=== PATIENT | female | born 1985 | race Caucasian/White ===

== ENCOUNTER 2018-05-19 05:52 | Emergency (ER) | payer BC, OTHER ==
[~2018-05-19] VITALS: Ht 170.2 cm; Wt 115.2 kg
[~2018-05-19 05:52] MED LIST: B Complete1 EACH PO; DESV50 PO; Folic Acid0.8 MG PO; HYDACE5 PO; IBUP800 PO; LOSA25; MAGOXI400 PO; NAPR220; NAPR550 PO; ONDA8 PO; OXYACE5T PO; Verotin-Gr Cap1 EACH PO; Zofran Odt4 MG SL; [UNRECOGNIZED DRUG - OTHER]
[2018-05-19] MEDS ORDERED: DESVENLAFAXINE25 MG PO (06:29)
[2018-05-19 07:10] LABS: Source, Urine Clean Catch
[2018-05-19 07:16] LABS: Appearance, Urine Hazy (Clear); Bilirubin, Urine Neg (Neg); Blood, Urine 3+ (Neg); Color, Urine Yellow (P-Yellow); Glucose Qualitative, Urine Neg (Neg); Ketones, Urine Neg (Neg); Leukocyte Esterase, Urine 3+ (Neg); Nitrite, Urine Neg (Neg); Protein, Urine 1+ (Neg); Specific Gravity, Urine 1.025 (1.003-1.022); Urobilinogen, Urine NORM (Normal)
[2018-05-19 07:29] LABS: White Blood Cells, Urine 25-50 /hpf (0-5)
[2018-05-19 07:30] LABS: Bacteria Mod /hpf; Squamous Epithelial Cells Many /hpf (Few)
[2018-05-19 07:33] LABS: BASOPHILS ABSOLUTE AUTO 0.02 K/mm3 (0.00-0.23); BASOPHILS PERCENT AUTO 0 % (0-2); EOSINOPHILS ABSOLUTE AUTO 0.07 K/mm3 (0.00-0.68); EOSINOPHILS PERCENT AUTO 1 % (0-6); Hematocrit 41.2 % (33.0-51.0); Hemoglobin 13.4 g/dL (11.5-16.0); IMMATURE GRAN ABSOLUTE AUTO 0.03 K/mm3 (0.00-0.10); IMMATURE GRAN PERCENT AUTO 0 % (0-1); LYMPHOCYTES ABSOLUTE AUTO 1.95 K/mm3 (0.84-5.20); LYMPHOCYTES PERCENT AUTO 29 % (21-46); MONOCYTES ABSOLUTE AUTO 0.34 K/mm3 (0.16-1.47); MONOCYTES PERCENT AUTO 5 % (4-13); Mean Corpuscular HGB 27.5 pg (26.0-34.0); Mean Corpuscular HGB Conc 32.5 g/dL (31.5-36.5); Mean Corpuscular Volume 85 fL (80-100); NEUTROPHILS ABSOLUTE AUTO 4.33 K/mm3 (1.96-9.15); NEUTROPHILS PERCENT AUTO 64 % (41-73); Platelet Count 230 K/mm3 (150-400); Red Blood Cell Count 4.87 M/mm3 (3.80-5.20); White Blood Cell Count 6.74 K/mm3 (4.00-11.30)
[2018-05-19 07:51] LABS: Alanine Aminotransfer (ALT/SGP 16 U/L (12-78); Albumin/Globulin Ratio 1.1 (0.8-1.8); Alk Phos 67 U/L (50-136); Anion Gap 7 mmol/L (6-16); Aspartate Aminotrans (AST/SGOT 16 U/L (12-37); Bilirubin, Total 0.6 mg/dL (0.1-1.0); Blood Urea Nitrogen 13 mg/dL (8-24); CO2, Blood 23 mmol/L (21-32); Calcium, Blood 8.8 mg/dL (8.5-10.1); Chloride, Blood 109 mmol/L (98-108); Creatinine, Blood 0.68 mg/dL (0.40-1.00); Globulin, Blood 3.7 g/dL (2.2-4.0); Glomerular Filtration Rate >60 (60-); Glucose, Blood 91 mg/dL (70-99); Sodium, Blood 139 mmol/L (136-145); Total Protein, Blood 7.7 g/dL (6.4-8.2)
[2018-05-19 08:47] LABS: Source, Urine Catheter
[2018-05-19 08:53] LABS: Bilirubin, Urine Neg (Neg); Blood, Urine Neg (Neg); Glucose Qualitative, Urine Neg (Neg); Ketones, Urine Neg (Neg); Leukocyte Esterase, Urine Neg (Neg); Nitrite, Urine Neg (Neg); Protein, Urine Neg (Neg); Urobilinogen, Urine NORM (Normal)
[2018-05-19 08:54] LABS: Appearance, Urine Clear (Clear); Color, Urine Yellow (P-Yellow)
== END 2018-05-19 10:39 | disposition home or self-care (01) ==
LOC: ER 05:52
PROVIDERS: Emergency Medicine
DX: R10.31 Right lower quadrant pain (principal); Z90.49 Acquired absence of other specified parts of digestive tract
CPT/HCPCS: 74176; 80053; 81001; 81003; 81025; 83690; 85025; 96361; 96374; 96375; 99284-25; J1170; J2405; J7120; P9612

== ENCOUNTER 2018-06-28 09:41 | Day surgery (SDC) | payer BC, OTHER ==
[~2018-06-28] VITALS: Ht 170.2 cm; Wt 114.3 kg
[~2018-06-28 09:41] MED LIST changes: +CLARITIN PO; +DESVENLAFAXINE25 MG PO; +FISH OIL 1,2001 EAC1 PO; +FLUTICASONE; +JENCYCLA0.35 MG PO; +METF500 PO; +Pravachol40 MG PO
--- NOTE | 2018-06-28 10:40 | NUR ---
History, Chart, Medications and Allergies reviewed before start of procedure. Lungs clear T/O to Auscultation. Patient confirms NPO status and agrees with scheduled surgery. Patient reports completing Chlorhexadine shower X2 prior to admission to hospital.
--- NOTE | 2018-06-28 13:19 | NUR ---
06/28/18 1319 Isabell Clay ALL COUNTS CORRECT.
--- NOTE | 2018-06-28 13:44 | NUR ---
ARRIVED INTO PACU VSS ASKING QUESTIONS ABOUT CARE AND HOW SURGERY WENT. RECIEVED REPORT FROM ANESTHESIOLOGIST.
--- NOTE | 2018-06-28 13:55 | NUR ---
ASSUMED PT CARE FROM CAMERON GAMA RN AT 1352. PT GRIMACING AND TEARY EYED. AFEBRILE/VSS. WARM BLANKETS PLACED. WILL MEDICATE FOR PAIN LEVEL 10.
--- NOTE | 2018-06-28 15:57 | NUR ---
WHILE UP TO BATHROOM BECAME NAUSEATED AND DIZZY. BROUGHT BACK TO BED IN WHEEL CHAIR. AFTER LYING DOWN 5 MINUTES STATES NAUSEA AND PAIN GETTING LESS DIZZYNESS HAS PAST
--- NOTE | 2018-06-28 17:11 | NUR ---
UP FOR WALK PATIENT DOING MUCH BETTER NO NAUSEA AND PAIN. DRESSED FOR DISC HARGE AND WAITING FOR CARLA TO RETURN TO HOSPITAL FROM PHARMACY
--- NOTE | 2018-06-28 17:31 | NUR ---
DISCHARGED AT THIS TIEM WITH ALL BELONINGS AND DISCHARGE INSTRUCTIONS.
== END 2018-06-28 22:42 | disposition home or self-care (01) ==
LOC: ORSCMMR 09:41 → ORD 10:00 → ORSCMMR 22:42
PROVIDERS: Obstetrics & Gynecology
PROC: 0UB14ZZ Excision of Left Ovary, Percutaneous Endoscopic Approach (ICD-10-PCS; principal; 2018-06-28 11:00)
DX: N83.02 Follicular cyst of left ovary (principal); N80.3 Endometriosis of pelvic peritoneum; E11.9 Type 2 diabetes mellitus without complications; E66.01 Morbid (severe) obesity due to excess calories; Z68.39 Body mass index [BMI] 39.0-39.9, adult; Z79.899 Other long term (current) drug therapy
CPT/HCPCS: 88305; J0690; J2405; J2704; J3010; J7120

== ENCOUNTER → 2018-11-01 | Outpatient (CLI) | payer BC, OTHER ==
[2018-11-01 08:53] LABS: Source, Urine Clean Catch
[2018-11-01 08:58] LABS: BASOPHILS ABSOLUTE AUTO 0.02 K/mm3 (0.00-0.23); BASOPHILS PERCENT AUTO 0 % (0-2); EOSINOPHILS ABSOLUTE AUTO 0.16 K/mm3 (0.00-0.68); EOSINOPHILS PERCENT AUTO 2 % (0-6); Hematocrit 39.5 % (33.0-51.0); Hemoglobin 13.1 g/dL (11.5-16.0); IMMATURE GRAN ABSOLUTE AUTO 0.03 K/mm3 (0.00-0.10); IMMATURE GRAN PERCENT AUTO 0 % (0-1); LYMPHOCYTES ABSOLUTE AUTO 2.31 K/mm3 (0.84-5.20); LYMPHOCYTES PERCENT AUTO 25 % (21-46); MONOCYTES ABSOLUTE AUTO 0.33 K/mm3 (0.16-1.47); MONOCYTES PERCENT AUTO 4 % (4-13); Mean Corpuscular HGB 27.7 pg (26.0-34.0); Mean Corpuscular HGB Conc 33.2 g/dL (31.5-36.5); Mean Corpuscular Volume 84 fL (80-100); Mean Platelet Volume 10.6 fL (9.1-12.4); NEUTROPHILS ABSOLUTE AUTO 6.45 K/mm3 (1.96-9.15); NEUTROPHILS PERCENT AUTO 70 % (41-73); Platelet Count 272 K/mm3 (150-400); RDW Coefficient Variation 13.2 % (11.7-14.2); RDW Standard Deviation 39.6 fL (35.1-46.3); Red Blood Cell Count 4.73 M/mm3 (3.80-5.20)
[2018-11-01 09:07] LABS: Bacteria Few /hpf; Squamous Epithelial Cells Mod /hpf (Few)
[2018-11-01 09:08] LABS: Alanine Aminotransfer (ALT/SGP 17 U/L (12-78); Albumin, Blood 3.8 g/dL (3.4-5.0); Albumin/Globulin Ratio 0.9 (0.8-1.8); Alk Phos 61 U/L (40-126); Anion Gap 12 mmol/L (6-16); Aspartate Aminotrans (AST/SGOT 13 U/L (12-37); Bilirubin, Total 0.4 mg/dL (0.1-1.0); Blood Urea Nitrogen 9 mg/dL (8-24); Bun/Creatinine Ratio 11.3 (12.0-20.0); CO2, Blood 22 mmol/L (21-32); Calcium, Blood 9.1 mg/dL (8.5-10.1); Chloride, Blood 105 mmol/L (98-108); Globulin, Blood 4.2 g/dL (2.2-4.0); Glomerular Filtration Rate >60 (60-); Glucose, Blood 82 mg/dL (70-99); Potassium, Blood 3.7 mmol/L (3.5-5.5); Sodium, Blood 139 mmol/L (136-145)
== END | disposition home or self-care (01) ==
LOC: LAB SHORT 08:48 → LAB EV 08:48
PROVIDERS: General Practice
DX: R82.90 Unspecified abnormal findings in urine (principal); R53.81 Other malaise
CPT/HCPCS: 80053; 81015; 84703; 85025; 87086

== ENCOUNTER 2019-07-15 15:50 | Inpatient (IN) | payer OTHER ==
[~2019-07-15] VITALS: Ht 170.2 cm; Wt 110.0 kg
[2019-07-15] MEDS ORDERED: BUPR100 PO (16:37)
[2019-07-15] MEDS ORDERED: PRENATAL TABLE1 EAC2 PO (16:37)
[2019-07-15] MEDS ORDERED: Vitamin C100 M1 (16:38)
[2019-07-15] MEDS ORDERED: OMEP20ER PO (16:38)
[2019-07-15] MEDS ORDERED: IRON160 M2 PO (16:39)
[2019-07-15 16:55] LABS: BASOPHILS ABSOLUTE AUTO 0.02 K/mm3 (0.00-0.23); BASOPHILS PERCENT AUTO 0 % (0-2); EOSINOPHILS PERCENT AUTO 1 % (0-6); Hematocrit 39.1 % (33.0-51.0); Hemoglobin 12.5 g/dL (11.5-16.0); IMMATURE GRAN ABSOLUTE AUTO 0.09 K/mm3 (0.00-0.10); IMMATURE GRAN PERCENT AUTO 1 % (0-1); LYMPHOCYTES ABSOLUTE AUTO 1.67 K/mm3 (0.84-5.20); LYMPHOCYTES PERCENT AUTO 23 % (21-46); MONOCYTES ABSOLUTE AUTO 0.49 K/mm3 (0.16-1.47); MONOCYTES PERCENT AUTO 7 % (4-13); Mean Corpuscular HGB 28.2 pg (26.0-34.0); Mean Corpuscular Volume 88 fL (80-100); NEUTROPHILS PERCENT AUTO 68 % (41-73); Platelet Count 153 K/mm3 (150-400); RDW Coefficient Variation 14.9 % (11.7-14.2); RDW Standard Deviation 48.3 fL (35.1-46.3); Red Blood Cell Count 4.43 M/mm3 (3.80-5.20); White Blood Cell Count 7.37 K/mm3 (4.00-11.30)
--- NOTE | 2019-07-16 04:30 | NUR ---
RT CALLED TO STANDBY FOR DELIVERY. BABY WAS DELIVERED, RN SX MOUTH AND NOSE. BABY HAD STRONG CRY. RT EXCUSED. RN TO CALL IF RT NEEDED.
--- NOTE | 2019-07-16 07:51 | NUR ---
FUNDUS AT WHAT APPEARTS TO BE BELLY BUTTON BUT WITH TUMMY TUCK BELLY BUTTON APPEARS LOWER
--- NOTE | 2019-07-16 15:05 | NUR ---
RN ROUNDED TO HELP W/ . EXPERIENCED /PUMPING MOM. PT HAS HISTORY OF PCOS AND HAS PUMPED AND SUPPLEMENTED W/ FORMULA W/ FIRST 2 CHILDREN. PT REPORTS SHE IS GOING TO CONTINUE DO THE SAME FOR THIS CHILD. PT STATES SHE HAS BEEN TRYING TO LATCH NB W/ SNS AND HAD A COUPLE GOOD FEEDS AND SOME BAD FEEDS. RN TALKED W/ HER ABOUT THE FIRST 24 HOURS OF LIFE AND WHAT TO EXPECT FROM NB. ENCOURGAED PT TO REQUEST LACATION SUPPORT AGAIN TOMORROW WHEN NB IS OUT OF 24 HOURS PERIOD AND HOPEFULLY MORE AWAKE. INSTRUCTED TO PLACE NB TO BREAST EVERY 2-3 HOURS, IF NB NOT INTERESTED TO HAND EXPRESS COLOSTRUM INTO NB MOUTH. PT VERBALIZES UNDERSTANDING AND DENIES ANY FURTHER QUESTIONS OR CONCERNS.
[2019-07-17 05:42] LABS: BASOPHILS ABSOLUTE AUTO 0.03 K/mm3 (0.00-0.23); BASOPHILS PERCENT AUTO 0 % (0-2); EOSINOPHILS ABSOLUTE AUTO 0.14 K/mm3 (0.00-0.68); EOSINOPHILS PERCENT AUTO 1 % (0-6); Hematocrit 35.1 % (33.0-51.0); Hemoglobin 10.9 g/dL (11.5-16.0); IMMATURE GRAN ABSOLUTE AUTO 0.09 K/mm3 (0.00-0.10); IMMATURE GRAN PERCENT AUTO 1 % (0-1); LYMPHOCYTES ABSOLUTE AUTO 1.93 K/mm3 (0.84-5.20); LYMPHOCYTES PERCENT AUTO 20 % (21-46); MONOCYTES ABSOLUTE AUTO 0.51 K/mm3 (0.16-1.47); MONOCYTES PERCENT AUTO 5 % (4-13); Mean Corpuscular HGB 27.9 pg (26.0-34.0); Mean Corpuscular HGB Conc 31.1 g/dL (31.5-36.5); Mean Corpuscular Volume 90 fL (80-100); Mean Platelet Volume 11.5 fL (9.1-12.4); NEUTROPHILS ABSOLUTE AUTO 7.21 K/mm3 (1.96-9.15); NEUTROPHILS PERCENT AUTO 73 % (41-73); Platelet Count 130 K/mm3 (150-400); RDW Coefficient Variation 14.9 % (11.7-14.2); RDW Standard Deviation 48.6 fL (35.1-46.3); Red Blood Cell Count 3.91 M/mm3 (3.80-5.20); White Blood Cell Count 9.91 K/mm3 (4.00-11.30)
--- NOTE | 2019-07-17 08:04 | NUR ---
DISCHARGE TEACHING TEACHING COMPLETED WITH PATIENT, VERBALIZES UNDERSTANDING AND HAS NO FURTHER QUESTIONS OR CONCERNS AT THIS TIME
[2019-07-17] MEDS ORDERED: IBUP800 PO (08:59)
--- NOTE | 2019-07-17 09:01 | NUR ---
PRESCRIPTION CALLED INTO [facility] AT [id number]
--- NOTE | 2019-07-17 09:59 | NUR ---
PATIENT DISCHARGED TO HOME AT [id number]
== END 2019-07-17 09:52 | disposition home or self-care (01) | DRG 807 ==
LOC: OBS 15:50 → BC 16:12
PROVIDERS: ADMIT Nurse Practitioner Obstetrics & Gynecology
PROC: 3E0P7VZ Introduction of Hormone into Female Reproductive, Via Natural or Artificial Opening (ICD-10-PCS; 2019-07-15)
PROC: 10E0XZZ Delivery of Products of Conception, External Approach (ICD-10-PCS; principal; 2019-07-16)
PROC: 00HU33Z Insertion of Infusion Device into Spinal Canal, Percutaneous Approach (ICD-10-PCS; 2019-07-16)
PROC: 3E0R3BZ Introduction of Anesthetic Agent into Spinal Canal, Percutaneous Approach (ICD-10-PCS; 2019-07-16)
DX: O48.0 Post-term pregnancy (principal); Z37.0 Single live birth; O69.1XX0 Labor and delivery complicated by cord around neck, with compression, not applicable or unspecified; O77.0 Labor and delivery complicated by meconium in amniotic fluid; O70.0 First degree perineal laceration during delivery; Z3A.40 40 weeks gestation of pregnancy
CPT/HCPCS: 36415; 59025; 85025; 86850; 86900; 86901; J1885; J2210; J2590; J3010; J7120

== ENCOUNTER → 2021-06-22 | Outpatient (CLI) | payer OTHER ==
[~2021-06-22] MED LIST changes: +BUPR100 PO; +IRON160 M2 PO; +OMEP20ER PO; +PRENATAL TABLE1 EAC2 PO; +Vitamin C100 M1
[2021-06-22 15:02] LABS: Candida species (DNA Probe) Negative (NEGATIVE); G. vaginalis (DNA Probe) Negative (NEGATIVE); T. vaginalis (DNA Probe) Negative (NEGATIVE)
== END | disposition home or self-care (01) ==
LOC: LAB SHORT 09:17 → LAB 09:17
PROVIDERS: Chiropractor
DX: R10.2 Pelvic and perineal pain (principal); R82.79 Other abnormal findings on microbiological examination of urine
CPT/HCPCS: 87070; 87086; 87205; 87480; 87510; 87660

== ENCOUNTER 2022-12-06 17:44 | Emergency (ER) | payer OTHER ==
[~2022-12-06] VITALS: Ht 170.2 cm; Wt 99.8 kg
[~2022-12-06 17:44] MED LIST changes: +MICROGESTIN 211 EACH PO; +SPIRONOLACTONE25 MG PO
[2022-12-06 18:48] LABS: BASOPHILS ABSOLUTE AUTO 0.04 K/mm3 (0.00-0.23); BASOPHILS PERCENT AUTO 1 % (0-2); EOSINOPHILS ABSOLUTE AUTO 0.19 K/mm3 (0.00-0.68); EOSINOPHILS PERCENT AUTO 2 % (0-6); Hematocrit 38.9 % (33.0-51.0); Hemoglobin 12.5 g/dL (11.5-16.0); IMMATURE GRAN ABSOLUTE AUTO 0.02 K/mm3 (0.00-0.10); IMMATURE GRAN PERCENT AUTO 0 % (0-1); LYMPHOCYTES ABSOLUTE AUTO 2.61 K/mm3 (0.84-5.20); LYMPHOCYTES PERCENT AUTO 31 % (21-46); MONOCYTES ABSOLUTE AUTO 0.37 K/mm3 (0.16-1.47); MONOCYTES PERCENT AUTO 4 % (4-13); Mean Corpuscular HGB 27.2 pg (26.0-34.0); Mean Corpuscular HGB Conc 32.1 g/dL (31.5-36.5); Mean Corpuscular Volume 85 fL (80-100); Mean Platelet Volume 10.3 fL (9.1-12.4); NEUTROPHILS PERCENT AUTO 61 % (41-73); Platelet Count 260 K/mm3 (150-400); RDW Coefficient Variation 12.8 % (11.7-14.2); RDW Standard Deviation 38.6 fL (35.1-46.3); White Blood Cell Count 8.33 K/mm3 (4.00-11.30)
[2022-12-06 19:15] LABS: Albumin, Blood 3.7 g/dL (3.4-5.0); Bilirubin, Total 0.3 mg/dL (0.1-1.0); Bun/Creatinine Ratio 19.2 (12.0-20.0); Calcium, Blood 9.3 mg/dL (8.5-10.1); Creatinine, Blood 0.83 mg/dL (0.40-1.00); Globulin, Blood 3.7 g/dL (2.2-4.0); Potassium, Blood 3.7 mmol/L (3.5-5.5); Total Protein, Blood 7.4 g/dL (6.4-8.2)
[2022-12-06 19:16] LABS: Source, Urine Clean Catch
[2022-12-06 19:25] LABS: Appearance, Urine Hazy (Clear); Bilirubin, Urine Neg (Neg); Blood, Urine Neg (Neg); Color, Urine Yellow (P-Yellow); Glucose Qualitative, Urine Neg (Neg); Ketones, Urine 2+ (Neg); Leukocyte Esterase, Urine Neg (Neg); Nitrite, Urine Neg (Neg); Protein, Urine Neg (Neg); Specific Gravity, Urine 1.025 (1.003-1.022); Urobilinogen, Urine NORM (Normal)
[2022-12-06 19:37] LABS: Bacteria Mod /hpf; Squamous Epithelial Cells Few /hpf (Few); White Blood Cells, Urine 0-2 /hpf (0-5)
[2022-12-06 21:45] VITALS: BP 135/84
== END 2022-12-06 21:50 | disposition home or self-care (01) ==
LOC: ER 17:44
PROVIDERS: Emergency Medicine
DX: K57.30 Diverticulosis of large intestine without perforation or abscess without bleeding (principal)
CPT/HCPCS: 74177; 80053; 81001; 83690; 84703; 85025; 87086; 96374; 96375; 99284-25; A9270; J2405; J3010; Q9967